=== PATIENT | female | born 1965 | race Caucasian/White ===

== ENCOUNTER 2023-07-05 15:34 | Outpatient (CLI) | payer BC, SELFPAY | END 2023-07-05 15:35 | disposition home or self-care (01) | PROVIDERS: PCP Physician Assistant Medical; Visit Provider Physician Assistant Medical | DX: M54.9 Dorsalgia, unspecified (principal); R10.9 Unspecified abdominal pain | CPT/HCPCS: 80053; 83690; 87086; 87186 ==

== ENCOUNTER 2024-03-06 06:21 | Outpatient (CLI) | payer BC, SELFPAY ==
--- NOTE | 2024-03-06 08:12 | W.ANESCHARGE ---
Anesthesia Charges Start Date/Time Anesthesia Start Date: 03/06/24 Anesthesia Start Time: 07:30 Stop Date/Time Anesthesia Stop Date: 03/06/24 Anesthesia Stop Time: 08:09
--- NOTE | 2024-03-06 08:13 | W.ANESCHARGE ---
Anesthesia Charges Start Date/Time Anesthesia Start Date: 03/06/24 Anesthesia Start Time: 07:30 Stop Date/Time Anesthesia Stop Date: 03/06/24 Anesthesia Stop Time: 08:09
== END 2024-03-06 06:22 | disposition home or self-care (01) ==
LOC: OP CLINIC 06:22
PROVIDERS: PCP Physician Assistant Medical; Visit Provider Surgery
DX: Z12.11 Encounter for screening for malignant neoplasm of colon (principal); K63.5 Polyp of colon; K57.30 Diverticulosis of large intestine without perforation or abscess without bleeding; D17.5 Benign lipomatous neoplasm of intra-abdominal organs; Z86.010 Personal history of colon polyps
CPT/HCPCS: 00811; 45380; 45385; 88305; J2704

== ENCOUNTER 2024-03-27 13:10 | Outpatient (CLI) | payer BC, SELFPAY ==
--- NOTE | 2024-03-27 13:40 | CRLHL7_ITS ---
For Patients: As a result of the Cures Act, medical imaging exams and procedure reports are released immediately into your electronic medical record. You may view this report before your referring provider. If you have questions, please contact your health care provider. BILATERAL SCREENING MAMMOGRAM WITH COMPUTER-AIDED DETECTION AND TOMOSYNTHESIS TECHNIQUE: CC and MLO views were obtained. These mammographic images have been obtained using full-field digital technique. These mammographic images were interpreted with the benefit of computer-aided detection. Breast Tomosynthesis was used in this interpretation. COMPARISON FILM: 11/10/21, 10/06/21, 12/19/15. FINDINGS: There are scattered areas of fibroglandular density IMPRESSION: There is no radiographic evidence for malignancy. ASSESSMENT: BI-RADS Category 2: Benign RECOMMENDATION: Routine screening mammogram in 1 year. A lay language report of this examination will be provided to the patient. AMELIA BELLE M.D. Diagnostic/Nuclear Medicine Radiologist [email or web address] ALEX:[email or web address] Transcribed: 12:52 p.mYonatan roche/Dictated by: Amelia Belle MD @ 03/30/2024 8:48:00 AM (Electronically Signed)
== END 2024-03-27 13:11 | disposition home or self-care (01) ==
LOC: MAMMO 13:10
PROVIDERS: PCP Physician Assistant Medical; Visit Provider Physician Assistant Medical
DX: Z12.31 Encounter for screening mammogram for malignant neoplasm of breast (principal)
CPT/HCPCS: 77063; 77067

== ENCOUNTER 2025-08-27 16:10 | Outpatient (CLI) | payer BC, SELFPAY ==
[2025-08-27 23:01] LABS: Chlamydia DNA Amplified* NOT DETECTED (No Detected); GC DNA Amplified* NOT DETECTED (No Detected)
[2025-08-31 09:08] LABS: HPV Source Cervix
[2025-08-31 14:01] LABS: Pap Test Digital Imaging Done
== END 2025-08-27 16:11 | disposition home or self-care (01) ==
PROVIDERS: PCP Physician Assistant Medical; Visit Provider Physician Assistant Medical
DX: Z00.00 Encounter for general adult medical examination without abnormal findings (principal)
CPT/HCPCS: 87491; 87591; 87624; 87625; 88141; 88142; 88175

== ENCOUNTER 2025-09-17 11:06 | Outpatient (CLI) | payer BC, SELFPAY ==
--- NOTE | 2025-09-17 11:30 | CRLHL7_ITS ---
For Patients: As a result of the Century Cures Act, medical imaging exams and procedure reports are released immediately into your electronic medical record. You may view this report before your referring provider. If you have questions, please contact your health care provider. INDICATION: BILATERAL SCREENING MAMMOGRAM, ASYMPTOMATIC 60 Y/O FEMALE COMPARISON: 03/27/2024, 10/03/2021, 12/19/2015 TECHNIQUE: Digital mammogram in CC and MLO projections including computer-aided detection (CAD) and tomosynthesis. BREAST COMPOSITION: There are scattered areas of fibroglandular density. FINDINGS: No suspicious findings. ASSESSMENT: BI-RADS 1 Negative RECOMMENDATION: Annual screening mammogram. A lay language report of this examination will be provided to the patient. Dictated by: Scott Yepez MD @ 09/17/2025 12:16:23 (Electronically Signed)
== END 2025-09-17 11:07 | disposition home or self-care (01) ==
PROVIDERS: PCP Physician Assistant Medical; Visit Provider Physician Assistant Medical
DX: Z12.31 Encounter for screening mammogram for malignant neoplasm of breast (principal)
CPT/HCPCS: 77063; 77067